=== PATIENT | male | born 1965 | race Caucasian/White ===

== ENCOUNTER 2022-03-06 08:45 | Inpatient (IN) | payer SELFPAY ==
[2022-03-06] MEDS ORDERED: Iopamidol 370 76% 100 ML VIAL ONE (09:55)
[2022-03-06 10:01] LABS: Hemoglobin A1c 5.3 % (4.0-6.0)
[2022-03-06 10:03] LABS: Cardiac Risk 4.2 (Less than 4.5)
[2022-03-06] MEDS ORDERED: Albumin 5% 500 ML ONE (10:19)
[2022-03-06] MEDS ORDERED: Papaverine 60 MG/2 ML VIAL ONE (10:34)
[2022-03-06] MEDS ORDERED: Protamine Sulfate 250 MG/25 ML VIAL ONE (10:34)
[2022-03-06] MEDS ORDERED: Thrombin 5000 UNITS/5 ML VIAL ONE (10:34)
[2022-03-06] MEDS ORDERED: Lidocaine 1% PF 5 ML VIAL ONE (10:34)
[2022-03-06] MEDS ORDERED: Heparin 30,000 units/30 ml VIAL ONE (10:34)
[2022-03-06] MEDS ORDERED: Magnesium Sulfate 1 GM/2 ML VIAL ONE (10:34)
[2022-03-06] MEDS ORDERED: Phenylephrine 10 MG/ML VIAL ONE (10:34)
[2022-03-06] MEDS ORDERED: Mannitol 12.5 GM/50 ML ONE (10:34)
[2022-03-06] MEDS ORDERED: Lidocaine 2% PF 100 mg/5 ml Syringe ONE (10:34)
[2022-03-06] MEDS ORDERED: Heparin 5,000 UNITS/ML VIAL ONE (10:34)
[2022-03-06] MEDS ORDERED: Vecuronium 10 MG VIAL ONE (10:34)
[2022-03-06] MEDS ORDERED: Aminocaproic Acid 5 GM/20 ML VIAL ONE (10:34)
[2022-03-06] MEDS ORDERED: Calcium Chloride 1 GM/10 ML Abboject SYRINGE ONE (10:34)
[2022-03-06] MEDS ORDERED: Nitroglycerin 50 MG/250 ML BOT ONE (10:34)
[2022-03-06] MEDS ORDERED: Sodium Bicarb 50 MEQ/50 ML Abboject 8.4% SYRINGE ONE (10:34)
[2022-03-06] MEDS ORDERED: Norepinephrine 4 MG/4 ML VIAL ONE (10:34)
[2022-03-06 10:41] LABS: CKMB 33.4 ng/mL (0-6.6)
[2022-03-06] MEDS ORDERED: fentaNYL Citrate/PF 100 MCG/2 ML SYRINGE ONE (11:01)
[2022-03-06] MEDS ORDERED: Milrinone 10 MG/10 ML VIAL ONE (11:01)
[2022-03-06] MEDS ORDERED: Midazolam HCl 5 mg/5 ml Vial ONE (11:05)
[2022-03-06 11:33] LABS: SARS-CoV-2 NAA Rapid Test Not Detected (NotDetected)
[2022-03-06] MEDS ORDERED: Magnesium 2 GM/50 ML(in water) 2 GM in Premix Bag 1 BAG IVPB SCH (15:03)
[2022-03-06] MEDS ORDERED: Bisacodyl 5 MG TAB PO PRN (15:03)
[2022-03-06] MEDS ORDERED: hydrALAZINE 20 MG/ML VIAL SLOW IVP PRN (15:03)
[2022-03-06] MEDS ORDERED: Acetaminophen 325 MG TAB PO PRN (15:03)
[2022-03-06] MEDS ORDERED: ceFAZolin 2 GM/Dextrose 50 ML 2 GM in Premix Bag 1 BAG IVPB SCH (15:03)
[2022-03-06] MEDS ORDERED: Norepinephrine 8 MG/0.9% NS 250 ML IVPB PRN (15:03)
[2022-03-06] MEDS ORDERED: Guaifenesin DM 100-10/5 ML UDCUP PO PRN (15:03)
[2022-03-06] MEDS ORDERED: Morphine 2 MG/ML VIAL SLOW IVP PRN (15:03)
[2022-03-06] MEDS ORDERED: HYDROcodone/Acetaminophen 5/325 mg Tablet PO PRN (15:03)
[2022-03-06] MEDS ORDERED: niCARdipine 25 MG in Sodium Chloride 0.9% 250 ML 250 ML IVPB PRN (15:03)
[2022-03-06] MEDS ORDERED: Bisacodyl 10 MG SUPP PR PRN (15:03)
[2022-03-06] MEDS ORDERED: Nitroglycerin 50 MG/250 ML BOT 250 ML IVPB PRN (15:03)
[2022-03-06] MEDS ORDERED: Hetastarch 6% 500 ML 500 ML IVPB PRN (15:03)
[2022-03-06] MEDS ORDERED: DOPamine 400 MG/D5W 250 ML 250 ML IVPB PRN (15:03)
[2022-03-06] MEDS ORDERED: Mag-Al 1200 mg/1200 mg/30 ML UDCUP PO PRN (15:03)
[2022-03-06] MEDS ORDERED: Post-Op Insulin Drip Protocol IVPB ONE (15:03)
[2022-03-06] MEDS ORDERED: Potassium Chloride 20 MEQ/100 ML PREMIX BAG IVPB PRN (15:03)
[2022-03-06 15:25] LABS: #Basophils 0.1 thou/uL (0.0-0.2); #Eosinphils 0.1 thou/uL (0.0-0.7); #Lymphocytes 2.3 thou/uL (1.20-3.40); #Monocytes 0.5 thou/uL (0.11-0.59); #Neutrophils 13.4 thou/uL (1.40-6.50); %Basophils 0.4 % (0.0-1.0); %Eosinophils 0.7 % (0.0-10.0); %Lymphocytes 14.2 % (21.0-51.0); %Monocytes 3.1 % (0.0-10.0); %Neutrophils 81.6 % (42.0-75.0); Hemoglobin 12.4 g/dL (14.0-18.0); Mean Corpuscular HGB CONC 33.8 g/dL (32.0-36.0); Mean Corpuscular Volume 97.7 fL (78.0-98.0); Mean Platelet Volume 8.5 fL (7.4-10.4); Platelet Count 136 thou/uL (130-400); RBC Distribution Width 11.5 % (11.5-14.5); Red Blood Cell (RBC) Count 3.77 mill/uL (4.70-6.10); White Blood Cell (WBC) Count 16.4 thou/uL (4.8-10.8)
[2022-03-06] MEDS ORDERED: HUMULIN R 100 UNITS in Sodium Chloride 0.9% 100 ML IVPB SCH (15:30)
[2022-03-06] MEDS ORDERED: Dextrose 50% Abboject 50 ML SYRINGE SLOW IVP PRN (15:30)
[2022-03-06] MEDS ORDERED: Dextrose 5% in Water 1,000 ML IV PRN (15:30)
[2022-03-06] MEDS ORDERED: Insulin Regular 300 UNITS/3 ML VIAL SC PRN (15:30)
[2022-03-06] MEDS ORDERED: Potassium Chloride 20 MEQ in Premix Bag 1 BAG IVPB PRN (15:32)
[2022-03-06] MEDS: Lactated Ringer's 1,000 ML IV SCH (15:38)
[2022-03-06 15:39] LABS: INR-International Normal Ratio 1.5; Prothrombin Time 18.8 sec (12.0-14.7)
[2022-03-06 15:45] LABS: Anion Gap 15 mmol/L (10-20); BUN (Urea Nitrogen) 12 mg/dL (8.4-25.7); Calc. Creatinine Clearance 87 mL/min (70-130); Calcium 7.7 mg/dL (7.8-10.44); Carbon Dioxide 21 mmol/L (22-29); Chloride 107 mmol/L (98-107); Estimated GFR 102; Glucose 167 mg/dL (70-105); Potassium 4.1 mmol/L (3.5-5.1); Sodium 139 mmol/L (136-145)
[2022-03-06] MEDS: Ondansetron PF 4 MG/2 ML Vial IVP PRN (15:55)
[2022-03-06] MEDS: HYDROcodone/Acetaminophen 5/325 mg Tablet PO PRN ×2 (16:02→20:22)
[2022-03-06] MEDS: CEFAZOLIN 2 GM in Sodium Chloride 0.9% 100 ML IVPB SCH (16:10)
[2022-03-06] MEDS: Fentanyl 100 MCG/2 ML VIAL SLOW IVP PRN ×2 (17:14→22:10)
[2022-03-06] MEDS ORDERED: Atorvastatin Calcium 10 MG TAB PO SCH (21:00)
[2022-03-06 21:24] LABS: Hemoglobin 10.2 g/dL (14.0-18.0)
[2022-03-06 21:38] LABS: Potassium 3.7 mmol/L (3.5-5.1)
[2022-03-06] MEDS: Famotidine/PF 20 mg/2ml Vial SLOW IVP SCH (22:07)
[2022-03-07] MEDS: CEFAZOLIN 2 GM in Sodium Chloride 0.9% 100 ML IVPB SCH ×2 (00:10→07:46)
[2022-03-07] MEDS: Fentanyl 100 MCG/2 ML VIAL SLOW IVP PRN ×2 (00:55→04:25)
[2022-03-07] MEDS: Ondansetron PF 4 MG/2 ML Vial IVP PRN ×2 (00:59→07:58)
[2022-03-07] MEDS: Lactated Ringer's 1,000 ML IV SCH (04:25)
[2022-03-07 05:08] LABS: #Lymphocytes 1.4 thou/uL (1.20-3.40); #Monocytes 0.8 thou/uL (0.11-0.59); #Neutrophils 7.5 thou/uL (1.40-6.50); %Basophils 0.1 % (0.0-1.0); %Eosinophils 0.2 % (0.0-10.0); %Lymphocytes 14.5 % (21.0-51.0); %Monocytes 7.8 % (0.0-10.0); %Neutrophils 77.4 % (42.0-75.0); Hemoglobin 11.1 g/dL (14.0-18.0); Mean Corpuscular HGB CONC 32.2 g/dL (32.0-36.0); Mean Corpuscular Hemoglobin 32.5 pg (27.0-31.0); Mean Platelet Volume 9.8 fL (7.4-10.4); Platelet Count 124 thou/uL (130-400); RBC Distribution Width 11.9 % (11.5-14.5); Red Blood Cell (RBC) Count 3.43 mill/uL (4.70-6.10); White Blood Cell (WBC) Count 9.7 thou/uL (4.8-10.8)
[2022-03-07 05:23] LABS: Anion Gap 14 mmol/L (10-20); BUN (Urea Nitrogen) 10 mg/dL (8.4-25.7); Calc. Creatinine Clearance 91 mL/min (70-130); Calcium 7.8 mg/dL (7.8-10.44); Carbon Dioxide 22 mmol/L (22-29); Chloride 109 mmol/L (98-107); Estimated GFR 104; Glucose 87 mg/dL (70-105); Potassium 4.6 mmol/L (3.5-5.1); Sodium 140 mmol/L (136-145)
[2022-03-07 05:33] LABS: Troponin I 16.714 ng/mL (< 0.028)
[2022-03-07 05:53] VITALS: BMI 20.9
[2022-03-07] MEDS: HYDROcodone/Acetaminophen 5/325 mg Tablet PO PRN (07:46)
[2022-03-07] MEDS: Magnesium 2 GM/50 ML(in water) 2 GM in Premix Bag 1 BAG IVPB SCH (07:52)
[2022-03-07] MEDS: Famotidine/PF 20 mg/2ml Vial SLOW IVP SCH (07:55)
[2022-03-07] MEDS: Polyethylene Glycol 3350 17 GM Packet PO SCH (07:55)
[2022-03-07] MEDS: Aspirin Chewable 81 MG TAB PO SCH (07:55)
[2022-03-07] MEDS ORDERED: Insulin Glargine 30 UNITS/0.3 ML VIAL SC PRN (15:20)
[2022-03-07] MEDS ORDERED: Bisacodyl 10 MG SUPP PR PRN (15:39)
[2022-03-07] MEDS ORDERED: Mineral Oil ENEMA PR PRN (15:39)
[2022-03-07] MEDS ORDERED: Bisacodyl 5 MG TAB PO PRN (15:39)
[2022-03-07] MEDS ORDERED: Nitroglycerin 0.4 MG TAB (25 Tab Bottle) SL PRN (15:39)
[2022-03-07] MEDS ORDERED: Mag-Al 1200 mg/1200 mg/30 ML UDCUP PO PRN (15:39)
[2022-03-07] MEDS: Atorvastatin Calcium 40 MG TAB PO SCH (20:23)
[2022-03-07] MEDS: Famotidine 20 MG TAB PO SCH (20:24)
[2022-03-08] MEDS: Fentanyl 100 MCG/2 ML VIAL SLOW IVP PRN ×2 (00:14→03:50)
[2022-03-08] MEDS: Metoprolol Tartrate 25 MG TAB PO SCH ×2 (08:23→20:52)
[2022-03-08] MEDS: Famotidine 20 MG TAB PO SCH ×2 (08:23→20:53)
[2022-03-08] MEDS: Enoxaparin Sodium 30 MG/0.3 ML SYRINGE SC SCH (08:23)
[2022-03-08] MEDS: Aspirin Chewable 81 MG TAB PO SCH (08:23)
[2022-03-08] MEDS: Furosemide 20 MG TAB PO SCH (08:23)
[2022-03-08] MEDS: Clopidogrel Bisulfate 75 MG TAB PO SCH (08:23)
[2022-03-08] MEDS: Magnesium 2 GM/50 ML(in water) 2 GM in Premix Bag 1 BAG IVPB SCH (08:24)
[2022-03-08] MEDS: Polyethylene Glycol 3350 17 GM Packet PO SCH (08:24)
[2022-03-08] MEDS: Atorvastatin Calcium 40 MG TAB PO SCH (20:53)
[2022-03-09] MEDS: Metoprolol Tartrate 25 MG TAB PO SCH ×2 (09:13→21:08)
[2022-03-09] MEDS: Enoxaparin Sodium 30 MG/0.3 ML SYRINGE SC SCH (09:13)
[2022-03-09] MEDS: Aspirin Chewable 81 MG TAB PO SCH (09:13)
[2022-03-09] MEDS: Famotidine 20 MG TAB PO SCH ×2 (09:13→21:08)
[2022-03-09] MEDS: Clopidogrel Bisulfate 75 MG TAB PO SCH (09:13)
[2022-03-09] MEDS: Polyethylene Glycol 3350 17 GM Packet PO SCH (09:13)
[2022-03-09] MEDS: Furosemide 20 MG TAB PO SCH (09:13)
[2022-03-09] MEDS: Atorvastatin Calcium 40 MG TAB PO SCH (21:08)
[2022-03-10] MEDS: Metoprolol Tartrate 25 MG TAB PO SCH (09:05)
[2022-03-10] MEDS: Enoxaparin Sodium 30 MG/0.3 ML SYRINGE SC SCH (09:05)
[2022-03-10] MEDS: Clopidogrel Bisulfate 75 MG TAB PO SCH (09:05)
[2022-03-10] MEDS: Aspirin Chewable 81 MG TAB PO SCH (09:05)
[2022-03-10] MEDS: Polyethylene Glycol 3350 17 GM Packet PO SCH (09:05)
[2022-03-10] MEDS: Famotidine 20 MG TAB PO SCH ×2 (09:05→20:34)
[2022-03-10] MEDS: Furosemide 20 MG TAB PO SCH (09:05)
[2022-03-10] MEDS ORDERED: Amiodarone 150 MG in Dextrose 5% in Water 100 ML IVPB SCH (10:45)
[2022-03-10] MEDS: Amiodarone 450 MG in Dextrose 5% in Water 250 ML IVPB SCH ×2 (10:53→18:50)
[2022-03-10 11:25] LABS: ALT (SGPT) 11 U/L (8-55); AST (SGOT) 21 U/L (5-34); Alkaline Phosphatase 64 U/L (40-110); Bilirubin, Direct 0.3 mg/dL (0.1-0.3); Bilirubin, Total 0.5 mg/dL (0.2-1.2); Magnesium 1.8 mg/dL (1.6-2.6); Potassium 3.8 mmol/L (3.5-5.1); Protein, Total 5.5 g/dL (6.0-8.3)
[2022-03-10] MEDS: Amiodarone 200 MG TAB PO SCH (20:35)
[2022-03-10] MEDS: Atorvastatin Calcium 40 MG TAB PO SCH (20:35)
[2022-03-11] MEDS: Polyethylene Glycol 3350 17 GM Packet PO SCH (10:22)
[2022-03-11] MEDS: Enoxaparin Sodium 30 MG/0.3 ML SYRINGE SC SCH (10:22)
[2022-03-11] MEDS: Famotidine 20 MG TAB PO SCH (10:22)
[2022-03-11] MEDS: Amiodarone 200 MG TAB PO SCH (10:23)
[2022-03-11] MEDS: Clopidogrel Bisulfate 75 MG TAB PO SCH (10:24)
[2022-03-11] MEDS: Furosemide 20 MG TAB PO SCH (10:24)
[2022-03-11] MEDS: Carvedilol 3.125 MG TAB PO SCH ×2 (10:25→15:17)
[2022-03-11] MEDS: Aspirin Chewable 81 MG TAB PO SCH (10:25)
[2022-03-11 17:17] VITALS: BP 119/73; TEMP 98
[2022-03-15 15:08] LABS: Actual Bicarbonate (HCO3a) 18.8 mEq/L (22-28); Analyzer IN Cardio OR; Base Excess (BEa) -5.7 mEq/L (-2.0 to +3.0); CO2 Tension 33.7 mmHg (35.0-45.0); Calcium, Ionized (arterial) 1.04 mmol/L (1.12-1.30); Carboxyhemoglobin (COHb) 0.3 gm% (0.0-3.0); Hemoglobin (Hb) 12.6 g/dL (14.0-18.0); O2 Tension (PaO2), arterial 497.7 mmHg (80.0-100.0); Potassium - ABG Lab 3.78 mmol/L (3.70-5.30); pH, Arterial 7.36 (7.35-7.45)
[2022-03-15 15:08] LABS: Actual Bicarbonate (HCO3a) 19.3 mEq/L (22-28); Analyzer IN Cardio OR; Base Excess (BEa) -4.5 mEq/L (-2.0 to +3.0); CO2 Tension 31.8 mmHg (35.0-45.0); Calcium, Ionized (arterial) 1.07 mmol/L (1.12-1.30); Carboxyhemoglobin (COHb) 0.2 gm% (0.0-3.0); Hemoglobin (Hb) 13.1 g/dL (14.0-18.0); O2 Tension (PaO2), arterial 468.6 mmHg (80.0-100.0); Potassium - ABG Lab 3.73 mmol/L (3.70-5.30)
[2022-03-15 15:08] LABS: Actual Bicarbonate (HCO3v) 21 mEq/L (22-28); Analyzer IN Cardio OR; Base Excess -4.9 mEq/L (-2.0 to +3.0); Calcium, Ionized (venous) 0.98 mmol/L (1.16-1.32); Chloride (VBG) 105 mmol/L (98-106); Hemoglobin (Hb) 9.2 g/dL (13.1-17.2); Potassium (VBG) 4.05 mmol/L (3.70-5.30); Sodium 131.4 mmol/L (133-146); pH (venous) 7.31 (7.32-7.43)
[2022-03-15 15:08] LABS: Actual Bicarbonate (HCO3a) 20.6 mEq/L (22-28); Analyzer IN Cardio OR; Base Excess (BEa) -4.9 mEq/L (-2.0 to +3.0); CO2 Tension 39.6 mmHg (35.0-45.0); Calcium, Ionized (arterial) 0.96 mmol/L (1.12-1.30); Carboxyhemoglobin (COHb) 0.1 gm% (0.0-3.0); Hemoglobin (Hb) 9.1 g/dL (14.0-18.0); O2 Tension (PaO2), arterial 416.5 mmHg (80.0-100.0); Potassium - ABG Lab 4.18 mmol/L (3.70-5.30); pH, Arterial 7.33 (7.35-7.45)
[2022-03-15 15:09] LABS: Actual Bicarbonate (HCO3a) 21.7 mEq/L (22-28); Analyzer IN Cardio OR; Base Excess (BEa) -2.3 mEq/L (-2.0 to +3.0); CO2 Tension 33.8 mmHg (35.0-45.0); Calcium, Ionized (arterial) 1.04 mmol/L (1.12-1.30); Carboxyhemoglobin (COHb) 0.3 gm% (0.0-3.0); Hemoglobin (Hb) 8.2 g/dL (14.0-18.0); O2 Tension (PaO2), arterial 481.5 mmHg (80.0-100.0); Potassium - ABG Lab 3.96 mmol/L (3.70-5.30); pH, Arterial 7.43 (7.35-7.45)
[2022-03-15 15:09] LABS: Actual Bicarbonate (HCO3a) 19.8 mEq/L (22-28); Analyzer IN Cardio OR; Base Excess (BEa) -4.9 mEq/L (-2.0 to +3.0); CO2 Tension 35.6 mmHg (35.0-45.0); Carboxyhemoglobin (COHb) 0.3 gm% (0.0-3.0); Hemoglobin (Hb) 11.3 g/dL (14.0-18.0); O2 Tension (PaO2), arterial 471.4 mmHg (80.0-100.0); Potassium - ABG Lab 3.83 mmol/L (3.70-5.30); pH, Arterial 7.36 (7.35-7.45)
[2022-03-15 15:14] LABS: Puncture Site Arterial Line
[2022-03-15 15:14] LABS: Puncture Site Arterial Line
[2022-03-15 15:15] LABS: Puncture Site Arterial Line
[2022-03-15 15:15] LABS: Puncture Site Arterial Line
[2022-03-15 15:16] LABS: Puncture Site Arterial Line
[2022-03-24] MEDS ORDERED: Amiodarone 200 MG TAB PO SCH (09:00)
[2022-04-07] MEDS ORDERED: Amiodarone 200 MG TAB PO SCH (09:00)
== END 2022-03-11 17:50 | disposition home or self-care (01) | DRG 234 ==
LOC: ERS 08:45 → CCL 09:09 → CCU 09:44 → 2NO 03-07 15:14
PROVIDERS: ADMIT Thoracic Surgery (Cardiothoracic Vascular Surgery); ATTEND Internal Medicine Cardiovascular Disease
PROC: 02100Z9 Bypass Coronary Artery, One Artery from Left Internal Mammary, Open Approach (ICD-10-PCS; principal; 2022-03-06)
PROC: 4A023N7 Measurement of Cardiac Sampling and Pressure, Left Heart, Percutaneous Approach (ICD-10-PCS; 2022-03-06)
PROC: 021009W Bypass Coronary Artery, One Artery from Aorta with Autologous Venous Tissue, Open Approach (ICD-10-PCS; 2022-03-06)
PROC: 06BQ4ZZ Excision of Left Saphenous Vein, Percutaneous Endoscopic Approach (ICD-10-PCS; 2022-03-06)
PROC: B2111ZZ Fluoroscopy of Multiple Coronary Arteries using Low Osmolar Contrast (ICD-10-PCS; 2022-03-06)
PROC: B2151ZZ Fluoroscopy of Left Heart using Low Osmolar Contrast (ICD-10-PCS; 2022-03-06)
PROC: 5A1221Z Performance of Cardiac Output, Continuous (ICD-10-PCS; 2022-03-06)
PROC: B24BZZ4 Ultrasonography of Heart with Aorta, Transesophageal (ICD-10-PCS; 2022-03-06)
PROC: 02L70ZK Occlusion of Left Atrial Appendage, Open Approach (ICD-10-PCS; 2022-03-06)
DX: I21.09 ST elevation (STEMI) myocardial infarction involving other coronary artery of anterior wall (principal); Z20.822 Contact with and (suspected) exposure to COVID-19; F12.10 Cannabis abuse, uncomplicated; R73.9 Hyperglycemia, unspecified; J44.9 Chronic obstructive pulmonary disease, unspecified; I25.10 Atherosclerotic heart disease of native coronary artery without angina pectoris; I44.7 Left bundle-branch block, unspecified; Z87.891 Personal history of nicotine dependence
CPT/HCPCS: 36415; 36416; 36430; 71045; 80048; 80061; 80076; 82553; 83036; 83735; 84132; 84443; 84484; 85025; 85347; 86850; 86900; 86901; 93005; 93010; 93306; 93458; 93459; 93798; C1751; J0282; J0690; J1644; J1650; J1815; J2001; J2150; J2250; J2260; J2270; J2370; J2405; J2440; J2720; J3010; J3370; J3475; J3480; J3490; J7070; J7120; P9045; Q9967; S0017; S0028; U0002

== ENCOUNTER 2023-10-15 13:10 | Emergency (ER) | payer OTHER ==
[2023-10-15 14:46] LABS: #Basophils 0.1 thou/uL (0.0-0.2); #Eosinphils 0.1 thou/uL (0.0-0.7); #Monocytes 0.7 thou/uL (0.11-0.59); #Neutrophils 8.1 thou/uL (1.40-6.50); %Basophils 0.8 % (0.0-1.0); %Eosinophils 0.7 % (0.0-10.0); %Lymphocytes 17.8 % (21.0-51.0); %Monocytes 6.1 % (0.0-10.0); %Neutrophils 74.2 % (42.0-75.0); Hematocrit 42.4 % (42.0-52.0); Hemoglobin 14.1 g/dL (14.0-18.0); Mean Corpuscular HGB CONC 33.3 g/dL (32.0-36.0); Mean Corpuscular Hemoglobin 32.4 pg (27.0-31.0); Mean Corpuscular Volume 97.5 fl (78.0-98.0); Mean Platelet Volume 10.9 fL (7.4-10.4); Platelet Count 235 10x3/uL (130-400); RBC Distribution Width 13.1 % (11.5-14.5); Red Blood Cell (RBC) Count 4.35 mill/uL (4.70-6.10)
[2023-10-15] MEDS ORDERED: Ketorolac Tromethamine 30 MG (1 mL) VIAL ONE (14:53)
[2023-10-15] MEDS ORDERED: Acetaminophen 500 MG TAB ONE (14:53)
[2023-10-15 15:12] LABS: ALT (SGPT) 18 U/L (8-55); AST (SGOT) 18 U/L (5-34); Albumin 4.4 g/dL (3.5-5.0); Alkaline Phosphatase 79 U/L (40-110); Anion Gap 12 mmol/L (10-20); BUN (Urea Nitrogen) 11 mg/dL (8.4-25.7); Bilirubin, Total 0.8 mg/dL (0.2-1.2); Calc. Creatinine Clearance 0 mL/min (70-130); Carbon Dioxide 26 mmol/L (22-29); Chloride 104 mmol/L (98-107); Estimated GFR 96; Globulin 2.8 g/dL (2.4-3.5); Glucose 108 mg/dL (70-105); Lipase 7 U/L (8-78); Potassium 4.5 mmol/L (3.5-5.1); Protein, Total 7.2 g/dL (6.0-8.3); Sodium 137 mmol/L (136-145)
[2023-10-15 15:40] LABS: Bacteria/HPF None Seen HPF (None Seen); Bilirubin Negative (Negative); Blood, Urine Negative (Negative); CAUTI Indications for Culture Pelvic or flank pain; Clarity Clear (Clear); Glucose, Urine (Dipstick) Normal (Negative); Ketone, Urine Negative (Negative); Leukocyte Negative Leu/uL (Negative); Nitrite Negative (Negative); Protein, Urine (Dipstick) Negative (Neg-Trace); RBC/HPF 0-3 HPF (0-3); Specific Gravity, Urine 1.007 (1.002-1.036); Squamous Epithelial None Seen HPF (0-3); Urobilinogen Normal mg/dL (Less than 2); WBC/HPF 0-3 HPF (0-3)
[2023-10-15 15:41] LABS: Urine Culture Reflex No No
[2023-10-15] MEDS ORDERED: Iopamidol-370 76% 500 ML MDV (1 ML CHARGE) ONE (15:43)
== END 2023-10-15 16:22 | disposition home or self-care (01) ==
LOC: ERS 13:10
DX: K62.5 Hemorrhage of anus and rectum (principal); M54.50 Low back pain, unspecified; Z55.6 Problems related to health literacy; Z87.891 Personal history of nicotine dependence
CPT/HCPCS: 36415; 74177; 80053; 81001; 82274; 83690; 85025; 93005; 96374; J1885; Q9967